=== PATIENT | male | born 1990 | race Caucasian/White ===

== ENCOUNTER 2019-08-31 00:37 | Observation (INO) | payer OTHER ==
[~2019-08-31] VITALS: Ht 177.8 cm; Wt 79.6 kg
[2019-08-31 00:53] LABS: Source, Urine Clean Catch
[2019-08-31 01:00] LABS: Bilirubin, Urine Neg (Neg); Blood, Urine Neg (Neg); Glucose Qualitative, Urine Neg (Neg); Ketones, Urine 1+ (Neg); Leukocyte Esterase, Urine Neg (Neg); Nitrite, Urine Neg (Neg); Protein, Urine Neg (Neg); Urobilinogen, Urine NORM (Normal)
[2019-08-31 01:00] LABS: BASOPHILS ABSOLUTE AUTO 0.03 K/mm3 (0.00-0.23); BASOPHILS PERCENT AUTO 0 % (0-2); EOSINOPHILS ABSOLUTE AUTO 0.36 K/mm3 (0.00-0.68); EOSINOPHILS PERCENT AUTO 5 % (0-6); Hemoglobin 14.7 g/dL (13.5-17.5); IMMATURE GRAN ABSOLUTE AUTO 0.01 K/mm3 (0.00-0.10); IMMATURE GRAN PERCENT AUTO 0 % (0-1); LYMPHOCYTES ABSOLUTE AUTO 2.15 K/mm3 (0.84-5.20); LYMPHOCYTES PERCENT AUTO 28 % (21-46); MONOCYTES ABSOLUTE AUTO 0.56 K/mm3 (0.16-1.47); MONOCYTES PERCENT AUTO 7 % (4-13); Mean Corpuscular HGB 32.2 pg (26.0-34.0); Mean Corpuscular HGB Conc 33.4 g/dL (31.5-36.5); Mean Corpuscular Volume 96 fL (80-100); Mean Platelet Volume 10.2 fL (9.1-12.4); NEUTROPHILS ABSOLUTE AUTO 4.59 K/mm3 (1.96-9.15); NEUTROPHILS PERCENT AUTO 60 % (41-73); Platelet Count 293 K/mm3 (150-400); RDW Coefficient Variation 13.1 % (11.7-14.2); RDW Standard Deviation 46.6 fL (35.1-46.3); Red Blood Cell Count 4.57 M/mm3 (4.30-5.90)
[2019-08-31 01:05] LABS: Appearance, Urine Clear (Clear); Color, Urine Yellow (P-Yellow)
[2019-08-31 01:10] LABS: U Amphetamine Screen Not Detected; U Barbituate Screen Not Detected; U Benzodiazapine Screen DETECTED; U Buprenorphine Screen Not Detected; U Cannabinoids Screen Not Detected; U Cocaine Screen Not Detected; U Methadone Screen Not Detected; U Methamphetamine Screen Not Detected; U Opiates Screen DETECTED; U Oxycodone Screen Not Detected; U Phencyclidine Screen Not Detected; U Propoxyphene Screen Not Detected
[2019-08-31 01:18] LABS: Acetaminophen, Random 7.5 ug/mL (10.0-30.0); Alanine Aminotransfer (ALT/SGP 42 U/L (12-78); Albumin/Globulin Ratio 1.1 (0.8-1.8); Alk Phos 103 U/L (50-136); Anion Gap 7 mmol/L (6-16); Aspartate Aminotrans (AST/SGOT 43 U/L (12-37); Bilirubin, Total 0.2 mg/dL (0.1-1.0); Blood Urea Nitrogen 15 mg/dL (8-24); Bun/Creatinine Ratio 15.2 (12.0-20.0); CO2, Blood 30 mmol/L (21-32); Calcium, Blood 8.8 mg/dL (8.5-10.1); Chloride, Blood 105 mmol/L (98-108); Creatinine, Blood 0.99 mg/dL (0.60-1.20); Ethanol (Alcohol), Blood, Med 181 mg/dL; Globulin, Blood 3.8 g/dL (2.2-4.0); Glomerular Filtration Rate >60 (60-); Glucose, Blood 91 mg/dL (70-99); Sodium, Blood 142 mmol/L (136-145); Total Protein, Blood 7.8 g/dL (6.4-8.2)
[2019-08-31] MEDS ORDERED: ALPR.25 PO (01:18)
[2019-08-31] MEDS ORDERED: ESCI20 PO (01:18)
[2019-08-31] MEDS ORDERED: ESCI10 PO (01:18)
--- NOTE | 2019-08-31 03:33 | NUR ---
ADMIT RECEIVED FROM ER VIA GURBENKELMAN. ABLE TO MOVE SELF FROM GURNEY TO BED WITHOUT DIFFICULTY. QUICKLY FALLS ASLEEP WHEN LEFT ALONE. ORIENTED AND COOPERATIVE. FLAT AFFECT NOTED. DENIES CURRENT SUICIDAL IDEATION, BUT DOES STATE THAT HE TOOK THE MEDICATIONS IN AN ATTEMPT TO KILL HIMSELF. MONITOR SHOWS NSR. BP STABLE. RA SATS 98%. RESPIRATIONS SHALLOW, EVEN, AND UNLABORED. DENIES C/O PAIN OR NAUSEA. SITTER AT BEDSIDE. SEE ADMIT ASSESSMENT FOR FULL ASSESSMENT.
--- NOTE | 2019-08-31 06:01 | NUR ---
SHIFT SUMMARY NO ACUTE CHANGES. SLEEPING WHEN UNDISTURBED. ROUSES TO VERBAL STIMULI, BUT FALLS BACK TO SLEEP QUICKLY. REPOSITIONS SELF IN BED. DENIES C/O PAIN OR DISCOMFORT. DENIES SUICIDAL IDEATION. NS INFUSING @ 75CC/HR PER ORDER. VSS. SITTER AT BEDSIDE. RE-EVALUATION OF SUICIDE RISK SHOWS NO CURRENT RISK- WILL NOTIFY MD FOR CHANGE IN SUICIDE PRECAUTIONS LEVEL. WILL REPORT TO DAY SHIFT RN WHEN AVAILABLE.
[2019-08-31 06:05] LABS: Hematocrit 39.9 % (37.0-53.0); Hemoglobin 13.7 g/dL (13.5-17.5); Mean Corpuscular HGB 32.7 pg (26.0-34.0); Mean Corpuscular HGB Conc 34.3 g/dL (31.5-36.5); Mean Corpuscular Volume 95 fL (80-100); Mean Platelet Volume 10.1 fL (9.1-12.4); Platelet Count 235 K/mm3 (150-400); RDW Standard Deviation 45.6 fL (35.1-46.3); Red Blood Cell Count 4.19 M/mm3 (4.30-5.90); White Blood Cell Count 5.29 K/mm3 (4.00-11.30)
[2019-08-31 06:22] LABS: Alanine Aminotransfer (ALT/SGP 37 U/L (12-78); Albumin, Blood 3.6 g/dL (3.4-5.0); Albumin/Globulin Ratio 1.1 (0.8-1.8); Alk Phos 84 U/L (50-136); Anion Gap 4 mmol/L (6-16); Aspartate Aminotrans (AST/SGOT 39 U/L (12-37); Bilirubin, Total 0.3 mg/dL (0.1-1.0); Blood Urea Nitrogen 12 mg/dL (8-24); Bun/Creatinine Ratio 12.6 (12.0-20.0); CO2, Blood 30 mmol/L (21-32); Calcium, Blood 8.3 mg/dL (8.5-10.1); Chloride, Blood 108 mmol/L (98-108); Creatinine, Blood 0.95 mg/dL (0.60-1.20); Globulin, Blood 3.4 g/dL (2.2-4.0); Glomerular Filtration Rate >60 (60-); Glucose, Blood 82 mg/dL (70-99); Potassium, Blood 3.8 mmol/L (3.5-5.5); Sodium, Blood 142 mmol/L (136-145)
--- NOTE | 2019-08-31 10:29 | NUR ---
Safety Plan complete. Patient on 2 MD Hold for OD on Lexapro and a pill or 2 on Xanax. Depression and anxiety worsened sinvce May. left and is living with a male in [facility] with his 1 and 2 year old daughters. 15-20 lb weight lossd since April. 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 Has taken FMLA from school for past 2 weeks. Sees Keturah Pettit APN for med management and Clau for therapy. He took pilss then called a friend-Juani, whogot him to the hospital by / suicide attempt He says that Mandeep texted his tlast night that he was seeing Juani--he reports this is what prompted his OD. He described that his will not agree to a divorce, but still lives with this other man. He had his daughters last weekend. No family local, parents in [place]. He engaged in positive planning to identify the triggers, and what he will do to remain strong and protect himself form 's emotional "sabotage". Encouraged him to text his therpist as she had invited him to do from sessions. He does report regret of the OD, flat affect Mela, Compass Theatrical Performer for 2 MD Hold also saw patient. She is not moving forward to court. Mehnaz Ross M.Ed., [facility]
--- NOTE | 2019-08-31 10:55 | NUR ---
PT SLEEPING AT 0715. ASSESSED AT 0800. PT DROWSY BUT OX3. PUPILS DILATED AT 7/7. SKIN SLIGHTLY DIAPHORETIC AND FLUSHED WITH BOUNDING PULSES. PT DENIES C/O PAIN. STATES HE FEELS A LITTLE DIZZY. NS INFUSING AT 75CC/HR TO LEFT AC. PT DENIES SUICIDE FEELINGS BUT DOES ADMIT THAT HE FEELS DEPRESSED AND ANXIOUS. WHEN ASKED IF HE FEELS HE WOULD BE SAFE AT HOME FROM CAUSING SELF HARM PT STATED "PROBABLY". "I GUESS YOU JUST HAVE TO MOVE ON AND DEAL WITH IT", TO HIS MARITAL ISSUES. DR GONZALEZ IN TO SEE PT, HIGH SUICIDE PRECAUTIONS DROPPED. 1:1 SITTER REPLACED W CAMERA. COMPASS VOLUNTEER RECRUITMENT COORDINATOR IN TO EVAULATE HOLD. BRAXTON MARES COMPLETED A SAFETY PLAN W PT. POSISON CONTROL GIVEN UPDATE AT 0830, THEY ARE SIGNING OFF CASE, CONTINUE WITH SUPPORTIVE CARE, TREAT WITH ATIVAN NEEDED FOR SEROTONIN SYNDROME SYMPTOMS. THIS INFORMATION PASSED ON TO DR GONZALEZ. DR DIAS TO SEE PT TODAY.
--- NOTE | 2019-08-31 15:17 | NUR ---
DR OTTOUFF IN TO SEE PT. EARLIER PT'S FATHER WAS GIVEN UPDATE VIA PHONE PER PT REQUEST.
--- NOTE | 2019-08-31 16:15 | NUR ---
PT TO STAY ANOTHER NIGHT PER DR DIAS; SUICIDE PRECAUTIONS LOWERED TO LOW. REPORT GIVEN MEDICAL FLOOR RN. PT TRANSFERED TO ROOM 346 AT 1620 BY DATA ANALYSIS MANAGER IN STABLE CONDITION.
--- NOTE | 2019-08-31 17:02 | NUR ---
PATIENT ARRIVED TO THE ROOM VIA W/C. HE IS ON CAMERA PER NURSING ASSORTER. SITTING IN ROOM. WITH GF. NO ACUTE ISSUES NOTED.
--- NOTE | 2019-08-31 18:20 | NUR ---
patient requesting to go confidential due to many visitors coming to the hospital. stated it was okay to speak with his Dad on the phone. This RN informed his dad that at this point patient will be monitored another night. Dad coming to visit from [place] tomorrow evening.
--- NOTE | 2019-08-31 18:24 | NUR ---
Matty was welcoming of prayer and gentle conversation. He is weak and sleepy. He expressed distraught with distance with small children. When asked how he is feeling about still being "here", he responded, "God must have a reason." He allowed me to pray for him at bedside, but he was too groggy for lengthy conversation. Advised I would remain available.
--- NOTE | 2019-08-31 19:14 | NUR ---
remote camera monitoring verified with quality assurance monitor final Dystini who is maintaining line of sight monitoring via remote camera for low suicide precautions. PT resting quietly and denies current plan for self harm. PT says Father is coming from [place] on airline flight. On room air voids large amts per report. Appears comfortable, calm.
[2019-08-31] MEDS ORDERED: Doxepin HC10 MG/1 ML PO (20:19)
--- NOTE | 2019-08-31 21:46 | NUR ---
29 year old Male with OD on psych meds for anxiety and depression changed to low SI precautions by MD Betancourt and was transferred from ICU to Med floor around 1620 per notes and reviewed orders. He is calm and cooperative and VSS. Currently watching Sports on TV. Room has safety environment check completed prior to transfer to room 346. PT on remote camera monitoring and verbalized no plan for self harm.
--- NOTE | 2019-09-01 07:26 | NUR ---
pt continued appropriate and without self harm intentions. rested well on romote camera monitoring for low suicide precautions. Room air VSS. Cooperative. PT has been being for anxiety and depression related to marital difficulties. Took rx that was prescribed to him in suicide gesture. Willing to discuss recent stressors and has safety plan in place. Has primary care provider. Has been on family medical heave for 2 weeks for Family separation issues. Continues to be appropriate and discussed reacting to others behaviors in healthy versus unhealthy ways.
--- NOTE | 2019-09-01 09:30 | NUR ---
DR. ESTRELLA AND MARISOL DUMONT VISITED WITH PATIENT. REMOVED FROM SUICIDAL HOLD. PATIENT STATES HE IS NO LONGER SUICIDAL. 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 DISCUSSED DOWNSIZING ON STRESSORS. PATIENT STATES HE IS GOING TO FOCUS ON TAKING IT ONE DAY AT A TIME AND FINDING A BALANCE IN HIS DAILY STRESSORS.
--- NOTE | 2019-09-01 11:06 | NUR ---
DISCHARGE INSTRUCTIONS VERBALIZED WITH PATIENT. A PRINTED COPY OF THE D/C INSTRUCTIONS GIVEN TO THE PATIENT FOR PATIENT REFERENCE ALONG WITH EDUCATIONAL MATERIAL ON SUICIDAL THOUGHTS AND OVER-DOSING. ALL QUESTIONS ANSWERED. D/C PAPERWORK SIGNED. THE PATIENT IS WAITING PATIENTLY IN HIS ROOM FOR HIS FRIEND WHO WILL TRANSPORT HIM HOME. PER DR GONZALEZ, DR ESTRELLA HAS CALLED IN THE XANAX AND LEXAPRO TO [facility]. PATIENT IS AWARE.
--- NOTE | 2019-09-01 11:12 | NUR ---
PATIENT DISCHARGED AT 1112; AMBULATED OUT ON FOOT.
== END 2019-09-01 11:12 | disposition home or self-care (01) ==
LOC: ER 00:37 → ICUW 00:38 → MEDS 16:23
PROVIDERS: Emergency Medicine; ADMIT Internal Medicine
DX: T43.222A Poisoning by selective serotonin reuptake inhibitors, intentional self-harm, initial encounter (principal); T42.4X2A Poisoning by benzodiazepines, intentional self-harm, initial encounter; F32.9 Major depressive disorder, single episode, unspecified; F98.8 Other specified behavioral and emotional disorders with onset usually occurring in childhood and adolescence; F41.9 Anxiety disorder, unspecified; Z79.899 Other long term (current) drug therapy
CPT/HCPCS: 36415; 80053; 81003; 85025; 85027; 90686; 93005; 93010; 96360; 99285-25; G0480; J1650; J7030

== ENCOUNTER 2020-04-03 01:32 | Emergency (ER) | payer OTHER ==
[~2020-04-03] VITALS: Ht 193 cm; Wt 93.0 kg
[~2020-04-03 01:32] MED LIST: ALPR.25 PO; Doxepin HC10 MG/1 ML PO; ESCI10 PO; ESCI20 PO
[2020-04-03] MEDS ORDERED: FERROUSUL325 MG PO (02:42)
[2020-04-03] MEDS ORDERED: DESVENLAFAXINE50 M3 PO (02:42)
[2020-04-03] MEDS ORDERED: ASCORBIC ACID500 M1 PO (02:42)
[2020-04-03] MEDS ORDERED: Vivitrol380 MG (02:43)
[2020-04-03] MEDS ORDERED: Naltrexone HCl50 MG PO (02:43)
== END 2020-04-03 04:48 | disposition short-term general hospital (02) ==
LOC: ER 01:32
DX: L76.22 Postprocedural hemorrhage of skin and subcutaneous tissue following other procedure (principal); F41.9 Anxiety disorder, unspecified; F32.9 Major depressive disorder, single episode, unspecified; Z79.899 Other long term (current) drug therapy
CPT/HCPCS: 96374; 96375; 96376; 99284-25; J1170; J2405; U0002